=== PATIENT | male | born 1960 | race Caucasian/White ===

== ENCOUNTER 2017-03-20 10:01 | Emergency (ER) | payer OTHER ==
--- NOTE | 2017-03-20 12:08 | ER Document Report ---
ED Medical Screen (RME) - General Chief Complaint: Fall Injury Stated Complaint: FALL/BACK PAIN Time seen by provider: 12:13 Mode of Arrival: Ambulatory Information source: Patient Notes: 56-year-old male fell against the corner of a desk on Monday and is complaining of severe pain to his lower left posterior ribs. When I touch the area he grabs my hand and pulls away. From what I can tell in triage his abdomen is nontender. His pulse is 122 and blood pressure 171/122. Upgraded him to yellow. Prescribed pain medication to be given at this time. The left ribs and chest x-ray were read as negative. TRAVEL OUTSIDE OF THE [place] IN LAST 30 DAYS: No - Related Data Allergies/Adverse Reactions: No Known Allergies Allergy (Verified 03/20/17 10:05) Past Medical History Renal/ Medical History: Denies: Hx Peritoneal Dialysis Physical Exam - Vital signs Vitals: Temp Pulse Resp BP Pulse Ox 99.1 F 122 H 18 201/121 H 96 03/20/17 10:08 03/20/17 10:08 03/20/17 10:08 03/20/17 10:08 03/20/17 10:08 Course - Vital Signs Vital signs: Temp Pulse Resp BP Pulse Ox 99.1 F 101 H 18 170/122 H 98 03/20/17 10:08 03/20/17 12:11 03/20/17 10:08 03/20/17 12:11 03/20/17 12:11
[2017-03-20] MEDS ORDERED: ONDANSETRON 4 MG TAB.RAPDIS PO ONE (12:11)
[2017-03-20] MEDS ORDERED: OXYCODONE-ACETAMINOPHEN 5-325 MG TABLET PO ONE (12:11)
[2017-03-20 12:43] LABS: ABSOLUTE BASOPHILS # (AUTO) 0.1 10^3/uL (0.0-0.2); ABSOLUTE LYMPHOCYTES (AUTO) 1.5 10^3/uL (0.5-4.7); ABSOLUTE NEUT (AUTO) 6.6 10^3/uL (1.7-8.2); BASOPHILS % (AUTO) 0.6 % (0-2); EOSINOPHILS % (AUTO) 0.3 % (0-6); HEMATOCRIT 49.5 % (37.9-51.0); HEMOGLOBIN 17.4 g/dL (13.5-17.0); HGB HCT DIFFERENCE 2.7; LYMPHOCYTES % (AUTO) 16.7 % (13-45); MEAN CORPUSCULAR HEMOGLOBIN 37.2 pg (27.0-33.4); MEAN CORPUSCULAR HGB CONC 35.2 g/dL (32.0-36.0); MEAN CORPUSCULAR VOLUME 106 fl (80-97); MONOCYTES % (AUTO) 11.2 % (3-13); RED BLOOD COUNT 4.69 10^6/uL (4.35-5.55); RED CELL DISTRIBUTION WIDTH 13.2 % (11.5-14.0); SEGMENTED NEUTROPHILS % (AUTO) 71.2 % (42-78); WHITE BLOOD COUNT 9.3 10^3/uL (4.0-10.5)
--- NOTE | 2017-03-20 12:54 | ER Document Report ---
ED Fall - General Mode of Arrival: Ambulatory Information source: Patient TRAVEL OUTSIDE OF THE [place] IN LAST 30 DAYS: No - HPI Patient complains to provider of: Fall Occurred: Other - 03/18/2017 Where: Home Context: Tripped Location of injury/pain: Trunk - Left ribs <COCO ESTRADA - Last Filed: 03/20/17 13:19> <DELMAR JUÁREZ - Last Filed: 03/20/17 17:47> - General Chief Complaint: Fall Injury Stated Complaint: FALL/BACK PAIN Notes: Patient is a 56-year-old male presenting to the emergency department concerned of left rib pain onset 03/18/2017 at approximately 2000 after tripping and falling down a couple of stairs and hitting his left ribs on the corner of the washing machine. Patient denies pain initially as he admits to being intoxicated at the time of the incident, but he states after he woke up a couple hours later the pain was pretty excruciating. Patient denies any other injuries or pain anywhere else. (COCO ESTRADA) - Related data Allergies/Adverse Reactions: No Known Allergies Allergy (Verified 03/20/17 10:05) Past Medical History - General Information source: Patient - Social History Smoking Status: Current Every Day Smoker Cigarette use (# per day): Yes - ~30 Frequency of alcohol use: Heavy - 3-4 days a week Family History: Reviewed & Not Pertinent Patient has suicidal ideation: No Patient has homicidal ideation: No <COCO ESTRADA - Last Filed: 03/20/17 13:19> Review of Systems - Review of Systems Constitutional: No symptoms reported EENT: No symptoms reported Cardiovascular: No symptoms reported Respiratory: No symptoms reported Gastrointestinal: No symptoms reported Genitourinary: No symptoms reported Male Genitourinary: No symptoms reported Musculoskeletal: See HPI, Other - Left rib pain Skin: No symptoms reported Hematologic/Lymphatic: No symptoms reported Neurological/Psychological: No symptoms reported -: Yes All other systems reviewed and negative <COCO ESTRADA - Last Filed: 03/20/17 13:19> Physical Exam - General General appearance: Appears well, Alert - HEENT Head: Normocephalic, Atraumatic Eyes: Normal Pupils: PERRL - Respiratory Respiratory status: Other - Shallow respirations secondary to rib pain Chest status: Nontender Breath sounds: Normal Chest palpation: Normal - Cardiovascular Rhythm: Regular Heart sounds: Normal auscultation Murmur: No - Abdominal Distension: No distension Bowel sounds: Normal Tenderness: Tender - Tenderness over the left anterior lateral ribs, Guarding Organomegaly: No organomegaly - Back Back: Normal - Extremities General upper extremity: Normal inspection, Nontender General lower extremity: Normal inspection, Nontender - Neurological Neuro grossly intact: Yes Cognition: Normal Orientation: AAOx4 [place] Coma Scale Eye Opening: Spontaneous [place] Coma Scale Verbal: Oriented [place] Coma Scale Motor: Obeys Commands Kristina Coma Scale Total: 15 Speech: Normal - Psychological Associated symptoms: Normal affect, Normal mood - Skin Skin Temperature: Warm Skin Moisture: Dry Skin Color: Normal <COCO ESTRADA - Last Filed: 03/20/17 13:19> Course - Laboratory Result Diagrams: 03/20/17 12:15 03/20/17 12:15 <COCO ESTRADA - Last Filed: 03/20/17 13:19> - Laboratory Result Diagrams: 03/20/17 12:15 03/20/17 12:15 - Diagnostic Test Radiology reviewed: Image reviewed, Reports reviewed - There are fractures of the left 10th and 11th ribs posteriorly <DELMAR JUÁREZ - Last Filed: 03/20/17 17:47> - Vital Signs Vital signs: Temp Pulse Resp BP Pulse Ox 99.1 F 101 H 20 173/128 H 95 03/20/17 10:08 03/20/17 12:11 03/20/17 16:01 03/20/17 16:01 03/20/17 16:01 - Laboratory Laboratory results interpreted by nj: 03/20/17 03/20/17 03/20/17 12:15 12:15 12:20 Hgb 17.4 H MCV 106 H MCH 37.2 H Chloride 97 L Glucose 111 H Calcium 10.5 H Total Bilirubin 1.7 H Direct Bilirubin 0.7 H AST 94 H ALT 173 H Total Protein 9.4 H Urine Protein 30 H Urine Ketones 20 H Urine Bilirubin MODERATE H Urine Urobilinogen 2.0 H Discharge <COCO ESTRADA - Last Filed: 03/20/17 13:19> <DELMAR JUÁREZ - Last Filed: 03/20/17 17:47> - Discharge Clinical Impression: Multiple rib fractures Qualifiers: Encounter type: initial encounter Fracture type: closed Laterality: left Qualified Code(s): S22.42XA - Multiple fractures of ribs, left side, initial encounter for closed fracture Condition: Stable Disposition: HOME, SELF-CARE Additional Instructions: Rib Injuries and Fractures: You have been diagnosed as having broken ribs. It will usually take four to six weeks for these injured ribs to heal. Sometimes, rib belts or anesthetic injections of the chest wall help reduce the pain. If you are using a rib belt, you should cough or take a deep breath at least every hour or two to prevent lung complications. You should not engage in any strenuous physical activity until released by your physician. The usual rule is "if it hurts, don't do it." Rib fractures can lead to serious lung complications including lung collapse, hemorrhage, and pneumonia. You should call the physician or return at once if any of the following occur: (1) Fever or chills. (2) Persistent cough, coughing up blood, or shortness of breath. (3) Increasing pain. (4) Weakness, lightheadedness, or fainting. High Blood Pressure: Your blood pressure is high. You will probably need treatment of your blood pressure. Pre-hypertension/Hypertension: The patient has been informed that they may have pre-hypertension or Hypertension based on a blood pressure reading in the emergency department. I recommend that the patient call the primary care provider listed on their dischargge instructions or a physician of their choice this wee to arrage follow up for further evaluation of possible pre- hypertension or Hypertension. If left untreated, high blood pressure greatly increases your risk of heart attack and stroke. Please don't ignore this problem. If you have blood pressure medicine but aren't using it regularly, start taking it again. Some simple things you can do to help are: Get some aerobic exercise for at least 20 minutes on a daily basis. (See your doctor before beginning any new exercise program.) Eat a low-fat diet. Lose excess weight. Avoid salty foods and avoid adding salt to any of the foods you eat. Avoid diet pills, decongestants, "energizing" herbs, and other medicines that elevate blood pressure. There are many different medicines that treat blood pressure. If your medication causes unpleasant side effects, call your doctor. There are others you can try. Treating hypertension is a life-long investment in your health. YOU HAVE FRACTURES OF THE LEFT 10th AND 11th RIBS. TAKE THE PAIN MEDICATION NEEDED. REST. DRINK PLENTY OF FLUIDS. TAKE DEEP BREATHS AND COUGH EVERY FEW HOURS. FOLLOW UP WITH A LOCAL MEDICAL DOCTOR THIS WEEK TO RECHECK YOUR INJURY AND YOUR BLOOD PRESSURE. RETURN TO THE EMERGENCY ROOM IF ANY NEW OR WORSENING SYMPTOMS. Prescriptions: Oxycodone HCl/Acetaminophen [Percocet 5-325 mg Tablet] 1 - 2 tab PO ASDIR PRN # 25 tablet PRN Reason: Forms: Return to Work Scribe Attestation: 03/20/17 17:47 I personally performed the services described in the documentation, reviewed and edited the documentation which was dictated to the scribe in my presence, and it accurately records my words and actions. (DELMAR JUÁREZ) Scribe Documentation - Scribe Written by Scribe:: Coco Estrada 03/20/2017 [id number] acting as scribe for :: Ana Paula <COCO ESTRADA - Last Filed: 03/20/17 13:19>
[2017-03-20 13:07] LABS: ALANINE AMINOTRANSFERASE 173 U/L (21-72); ALKALINE PHOSPHATASE 113 U/L (38-126); ANION GAP 16 (5-19); ASPARTATE AMINO TRANSFERASE 94 U/L (17-59); BILIRUBIN,DIRECT 0.7 mg/dL (0.0-0.4); BILIRUBIN,TOTAL 1.7 mg/dL (0.2-1.3); BLOOD UREA NITROGEN 16 mg/dL (7-20); CALCIUM 10.5 mg/dL (8.4-10.2); CARBON DIOXIDE 26 mmol/L (22-30); CHLORIDE 97 mmol/L (98-107); CREATININE RESULT 1.02 mg/dL (0.52-1.25); GLUCOSE 111 mg/dL (75-110); SODIUM 139.1 mmol/L (137-145); TOTAL PROTEIN 9.4 g/dL (6.3-8.2)
[2017-03-20 13:08] LABS: URINE BARBITURATES SCREEN NEGATIVE; URINE METHADONE SCREEN NEGATIVE; URINE OPIATES LOW NEGATIVE; URINE PHENCYCLIDINE SCREEN NEGATIVE
[2017-03-20 13:11] LABS: APPEARANCE,URINE CLEAR; BILIRUBIN,URINE MODERATE (NEGATIVE); GLUCOSE, URINE NEGATIVE (NEGATIVE); KETONES,URINE 20 mg/dL (NEGATIVE); LEUKOCYTE ESTERASE,URINE NEGATIVE (NEGATIVE); NITRITE,URINE NEGATIVE (NEGATIVE); PROTEIN,URINE 30 mg/dL (NEGATIVE); URINE SPECIFIC GRAVITY 1.035
[2017-03-20 13:13] LABS: ADD ON TESTING BLD IN LAB ACKNOWLEDGE
[2017-03-20] MEDS ORDERED: MORPHINE SULFATE 10 MG/ML INJ IV ONE ×3 (13:22→17:49)
[2017-03-20] MEDS ORDERED: NORMAL SALINE 1000 ML 1,000 ML IV PRN (13:22)
[2017-03-20 14:16] LABS: ALCOHOL < 10 mg/dL (NONE DETECTED)
[2017-03-20] MEDS ORDERED: ONDANSETRON HCL INJ/PF 4 MG/2 ML SDV IV ONE ×2 (15:32→17:49)
[2017-03-20 16:15] VITALS: BP 173/128
== END 2017-03-20 18:18 | disposition home or self-care (01) ==
LOC: ER 10:01
DX: S22.42XA Multiple fractures of ribs, left side, initial encounter for closed fracture (principal); R07.81 Pleurodynia; W10.9XXA Fall (on) (from) unspecified stairs and steps, initial encounter; Y92.009 Unspecified place in unspecified non-institutional (private) residence as the place of occurrence of the external cause; F17.210 Nicotine dependence, cigarettes, uncomplicated
CPT/HCPCS: 96376; 99284; 96374; 96375; 36415; 80307 ×2; 85025; 80053; 81001; 71101; 71260; 74177; S0119; J2270; J2405; J7030